=== PATIENT | female | born 1980 | race Two or more races ===

== ENCOUNTER 2016-11-07 09:07 | Day surgery (SDC) | payer MEDICAID ==
[2016-11-07] MEDS ORDERED: MAPAP500 M3 PO (10:01)
[2016-11-07] MEDS ORDERED: MECLIZINE HCL25 M3 PO (10:04)
[2016-11-07] MEDS ORDERED: MELATONIN10 M4 (10:07)
[2016-11-07] MEDS ORDERED: MACROBID 100 M100 M1 (10:07)
[2016-11-07] MEDS ORDERED: NYSTOP60 GM (10:08)
[2016-11-07] MEDS ORDERED: OMEPRAZOLE20 M3 (10:09)
[2016-11-07] MEDS ORDERED: PHENTERMINE HCL15 M1 (10:12)
[2016-11-07] MEDS ORDERED: ZOFRAN4 M2 PO (10:12)
[2016-11-07] MEDS ORDERED: PROAIR HFA8.5 GM (10:13)
[2016-11-07] MEDS ORDERED: SERTRALINE HCL50 M4 (10:15)
[2016-11-07] MEDS ORDERED: BACTRIM DS TAB1 EAC2 (10:15)
[2016-11-07] MEDS ORDERED: TYLENOL WITH C1 EACH (10:17)
[2016-11-07] MEDS ORDERED: AMOX-CLAV 500-1 EACH (10:18)
[2016-11-07] MEDS ORDERED: ZYRTEC10 M7 (10:19)
[2016-11-07 10:20] LABS: BASO % 0.3 % (0-2); EOS % 4.4 % (0-7); EOSINOPHIL ABSOLUTE COUNT 0.3 tho/cmm (0.0-0.7); HCT-HEMATOCRIT 37.9 % (34.0-49.0); HGB-HEMOGLOBIN 12.6 gm/dl (12.0-15.5); IMMATURE GRANULOCYTES ABSOLUTE 0.01 tho/cmm (0-0.03); IMMATURE GRANULOCYTES PERCENT 0.1 % (0-0.3); LYMPH % 24.4 % (20-45); LYMPH ABSOLUTE COUNT 1.9 tho/cmm (0.8-4.5); MCH (MEAN CORPUSCULAR HGB) 25.8 pg (28.0-32.0); MCHC MEAN CORPUSCULAR HGB CONC 33.2 % (32.0-36.0); MCV (MEAN CELL VOLUME) 77.7 fl (82.0-96.0); MEAN PLATELET VOLUME 9.4 cmc (9.4-12.4); MONO % 5.9 % (0-12); MONOCYTE ABSOLUTE COUNT 0.5 tho/cmm (0.0-1.2); NEUTROPHILS % 64.9 % (40-80); PLATELET COUNT 671 tho/cmm (150-450); RED BLOOD COUNT 4.88 mil/cmm (4.00-5.20); RED CELL DISTRIBUTION WIDTH 14.7 % (12.4-16.4); WHITE BLOOD COUNT 7.7 tho/cmm (4.0-10.0)
[2016-11-07] MEDS ORDERED: PERIDEX118 ML (10:20)
[2016-11-07] MEDS ORDERED: LOTRISONE CREAM15 GM (10:21)
[2016-11-07] MEDS ORDERED: BENTYL10 M1 (10:22)
[2016-11-07] MEDS ORDERED: DIFLUCAN40 MG/1 ML (10:24)
[2016-11-07 10:26] LABS: PROTHROMBIN TIME 11.8 SECONDS (9.0-13.6)
[2016-11-07] MEDS ORDERED: FLONASE ALLERG9.9 ML (10:26)
[2016-11-07] MEDS ORDERED: IBUPROFEN400 M1 (10:26)
[2016-11-07] MEDS ORDERED: KETOROLAC TROME10 MG (10:28)
[2016-11-07] MEDS ORDERED: IMODIUM A-D2 M4 (10:30)
[2016-11-07] MEDS ORDERED: CLARITIN10 M6 (10:31)
== END 2016-11-07 14:05 ==
LOC: CTSCAN 09:07 → SHSC 09:23
PROVIDERS: Radiology Diagnostic Radiology
PROC: 07DR3ZX Extraction of Iliac Bone Marrow, Percutaneous Approach, Diagnostic (ICD-10-PCS; principal; 2016-11-07)
DX: D47.3 Essential (hemorrhagic) thrombocythemia (principal); E04.9 Nontoxic goiter, unspecified; E66.01 Morbid (severe) obesity due to excess calories; Z90.49 Acquired absence of other specified parts of digestive tract; Z87.442 Personal history of urinary calculi; Z79.899 Other long term (current) drug therapy; Z68.41 Body mass index [BMI] 40.0-44.9, adult; Z98.890 Other specified postprocedural states
CPT/HCPCS: C1830; G0364; J2250; J3010; J7030